=== PATIENT | male | born 1970 | race Caucasian/White ===

== ENCOUNTER 2016-10-24 23:04 | Emergency (ER) | payer OTHER | END 2016-10-25 02:25 | disposition short-term general hospital (02) | LOC: ER 23:04 | DX: J18.9 Pneumonia, unspecified organism (principal); T82.198A Other mechanical complication of other cardiac electronic device, initial encounter; R09.02 Hypoxemia; E78.5 Hyperlipidemia, unspecified; I10 Essential (primary) hypertension; F17.210 Nicotine dependence, cigarettes, uncomplicated; Z99.81 Dependence on supplemental oxygen; Z79.01 Long term (current) use of anticoagulants; Z79.82 Long term (current) use of aspirin; Z79.899 Other long term (current) drug therapy | CPT/HCPCS: 36415; 87502; 96361; 96365; 96366; 96367; 96368; J3370 ==